=== PATIENT | female | born 1985 | race Caucasian/White ===

== ENCOUNTER 2024-07-16 05:52 | Emergency (ER) | payer BC, OTHER ==
[~2024-07-16] VITALS: Ht 165.1 cm; Wt 110.7 kg
[2024-07-16 05:54] VITALS: TEMP 97
[2024-07-16] MEDS: ketorolac trometh 30MG/ML vial 30 MG/ML VIAL IV ONE ×2 (06:45→09:57)
[2024-07-16] MEDS: normal saline 1000ml 1,000 ML IV ONE (07:18)
[2024-07-16] MEDS: diphenhydrAMINE 50 mg/ml inj IV ONE (07:18)
[2024-07-16] MEDS: metoclopramide 5 mg/ml inj IV ONE (07:18)
[2024-07-16] MEDS: acetaminophen 1,000mg/100ml IV 100 ML IV ONE (08:46)
[2024-07-16] MEDS: haloperidol lactate 5mg/ml inj IM ONE (09:56)
[2024-07-16 10:05] VITALS: BP 128/62; PULSE 69; RESP 14; O2SAT 98
== END 2024-07-16 10:13 | disposition home or self-care (01) ==
LOC: ER 05:54
DX: G43.909 Migraine, unspecified, not intractable, without status migrainosus (principal); Z88.8 Allergy status to other drugs, medicaments and biological substances
CPT/HCPCS: 96361; 96374; 96375; 99284; J0131; J1200; J1885; J2765; J7030